=== PATIENT | male | born 1955 | race Caucasian/White ===

== ENCOUNTER 2021-09-10 09:38 | Emergency (ER) | payer BC ==
[2021-09-10 10:47] LABS: RED BLOOD COUNT 5.4 M/UL (4.20-5.50); WHITE BLOOD COUNT 13.5 K/UL (4.5-11.0)
[2021-09-10 11:12] LABS: BUN/CREATININE RATIO 20 (0-10)
[2021-09-10] MEDS ORDERED: ZOFRAN ODT 4 MG4 MG PO (14:00)
== END 2021-09-10 14:00 | disposition home or self-care (01) ==
LOC: ER1 09:38
PROVIDERS: Emergency Medicine
DX: R10.9 Unspecified abdominal pain (principal); R10.817 Generalized abdominal tenderness; Z87.442 Personal history of urinary calculi
CPT/HCPCS: 80053; 81001; 82550; 82553; 83690; 84484; 85025; 96374; 99284; J2405; J7030; Q9967

== ENCOUNTER 2021-10-16 10:16 | Emergency (ER) | payer MEDICARE, BC ==
[~2021-10-16 10:16] MED LIST: ZOFRAN ODT 4 MG4 MG PO
[2021-10-16 11:46] LABS: HEMOGLOBIN 14.1 gm/dl (14.0-17.5); RED BLOOD COUNT 4.55 M/UL (4.20-5.50); WHITE BLOOD COUNT 7.7 K/UL (4.5-11.0)
[2021-10-16 12:06] LABS: BUN/CREATININE RATIO 17 (0-10)
== END 2021-10-16 13:00 | disposition home or self-care (01) ==
LOC: ER1 10:16
PROVIDERS: Physician Assistant
DX: M94.0 Chondrocostal junction syndrome [Tietze] (principal); I10 Essential (primary) hypertension; E11.9 Type 2 diabetes mellitus without complications; Z79.82 Long term (current) use of aspirin
CPT/HCPCS: 71045; 80053; 82550; 82553; 84484; 85025; 93005; 96374; 99285; J1885